=== PATIENT | male | born 1985 | race Two or more races ===

== ENCOUNTER → 2018-11-06 10:57 | Outpatient (CLI) | payer OTHER, BC, SELFPAY ==
--- NOTE | 2018-11-06 10:59 | RAD_ITS ---
STUDY: X-RAY - RIGHT SHOULDER REASON FOR EXAM: Male, 33 years old. Pain. TECHNIQUE: 4 view(s) of the shoulder. COMPARISON: None. FINDINGS: Normal glenohumeral articulation. Normal acromioclavicular joint. Normal acromion. Normal humeral head and visualized proximal humerus. The soft tissue structures are unremarkable. There is no demonstrated osseous destructive lesion or acute fracture. Normal visualized pulmonary apex. RAD/Shoulder min 2 Views IMPRESSION: Normal x-ray examination of the right shoulder. Electronically Signed: Wojciech Gage MD at 15:52 EDT , Service support ,
--- NOTE | 2018-11-06 10:59 | RAD_ITS ---
STUDY: X-RAY - CERVICAL SPINE REASON FOR EXAM: Male, 33 years old. Shoulder pain. TECHNIQUE: 4 view(s) of the cervical spine were obtained, including lateral flexion and extension images. COMPARISON: None FINDINGS: There are degenerative changes of the anterior atlantoaxial articulation. Normal odontoid process. There is straightening of the normal cervical lordosis. There is limited range of motion on flexion and extension, no instability is demonstrated. Normal vertebral bodies and endplates. Normal disc space heights. 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 The vertebral soft tissue structures are unremarkable. There is no demonstrated osseous destructive process or acute fracture of the cervical spine. RAD/Cerv Spine Obl/Flex/Ext Comp IMPRESSION: 1. 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 2. There is some straightening of the cervical lordosis limited range of motion on flexion-extension, which may reflect muscle spasm. Electronically Signed: Wojciech Gage MD at 15:54 EDT , Service support ,
== END ==
PROVIDERS: Referring Provider Physician Assistant; Visit Provider Physician Assistant
DX: R52 Pain, unspecified (principal)
CPT/HCPCS: 72052; 73030